=== PATIENT | male | born 1980 ===

== ENCOUNTER 2017-10-01 07:02 | Emergency (ER) | payer BC ==
[2017-10-01 07:21] VITALS: BP 137/79
[2017-10-01] MEDS ORDERED: Lidocaine 1% MPF* 2 ML VIAL INJ ONE (07:23)
--- NOTE | 2017-10-01 08:12 | UC ---
Skin Complaint HPI - HPI Summary HPI Summary: Patient presents with a large wooden splinter embedded in his left palm that he sustained while chopping wood about 2 hours prior to arrival. Last tetanus booster December 2016. - History of Current Complaint Chief Complaint: UCForeignBody Time Seen by Provider: 10/01/17 07:19 Stated Complaint: SPLINTER Hx Obtained From: Patient Onset/Duration: Sudden Onset, Lasting Hours, Still Present Timing: Constant Onset Severity: Mild Current Severity: Mild Pain Intensity: 1 Pain Scale Used: 0-10 Numeric Location: Discrete - LEFT PALM Character: Pain Aggravating Factor(s): Touch Alleviating Factor(s): Nothing Associated Signs & Symptoms: Positive: Tenderness. Negative: Nausea, Fever - Allergy/Home Medications Allergies/Adverse Reactions: Allergies Allergy/AdvReac Type Severity Reaction Status Date / Time No Known Allergies Allergy Verified 10/01/17 07:15 Home Medications: Home Medications NK [No Home Medications Reported] 10/01/17 [History Confirmed 10/01/17] Review of Systems Constitutional: Negative Skin: Other - SPLINTER LEFT PALM Respiratory: Negative Cardiovascular: Negative Gastrointestinal: Negative All Other Systems Reviewed And Are Negative: Yes PMH/Surg Hx/FS Hx/Imm Hx Previously Healthy: Yes - Surgical History Surgical History: None - Family History Known Family History: Positive: Hypertension - Social History Alcohol Use: Occasionally Substance Use Type: None Smoking Status (MU): Never Smoked Tobacco Physical Exam Triage Information Reviewed: Yes Appearance: Well-Appearing, No Pain Distress, Well-Nourished Vital Signs: Initial Vital Signs Temp 98.1 F 10/01/17 07:16 Pulse 68 10/01/17 07:16 Resp 16 10/01/17 07:16 BP 137/79 10/01/17 07:16 Pulse Ox 99 10/01/17 07:16 Vital Signs Reviewed: Yes Eyes: Positive: Conjunctiva Clear ENT: Positive: Hearing grossly normal Neck: Positive: Supple Respiratory: Positive: No respiratory distress, No accessory muscle use Cardiovascular: Positive: Pulses Normal Abdomen Description: Positive: Soft Musculoskeletal: Positive: ROM Intact, No Edema Neurological: Positive: Alert Psychological: Positive: Age Appropriate Behavior Skin: Positive: Other - SPLINTER EMBEDDED LEFT PALM THENAR EMINENCE. Negative: rashes Course/Dx - Course Course Of Treatment: 1% plain lidocaine used for local anesthesia left palm. 15 blade used to create incision overlying palpable splinter. Splinter forceps used to grasp the 2 cm splinter which was removed without difficulty. Patient tolerated procedure well. Pressure dressing applied. - Diagnoses Provider Diagnoses: SPLINTER REMOVAL LEFT PALM Discharge - Sign-Out/Discharge Documenting (check all that apply): Discharge - Discharge Plan Condition: Stable Disposition: HOME Patient Education Materials: Soft Tissue Foreign Body (ED) Referrals: No Primary Care Phys,NOPCP [Primary Care Provider] - Additional Instructions: SEEK FOLLOW-UP IF YOU DEVELOP SPREADING REDNESS OF THE SKIN, PURULENT DRAINAGE, FEVER, INCREASED PAIN OR ANY OTHER CONCERNING SYMPTOMS. CALL THE NUMBER BELOW FOR ASSISTANCE IN ESTABLISHING WITH A PCP An additional resource available to assist in finding the appropriate physician for your health care needs is [facility] ([facility]). You may contact them by calling [phone]. - Billing Disposition and Condition Condition: STABLE Disposition: HOME
== END 2017-10-01 08:20 | disposition home or self-care (01) ==
LOC: UCEAST 07:02
DX: S60.552A Superficial foreign body of left hand, initial encounter (principal); W45.8XXA Other foreign body or object entering through skin, initial encounter; Y93.89 Activity, other specified; Y92.9 Unspecified place or not applicable
CPT/HCPCS: 10120; 99201; G0463